=== PATIENT | male | born 2000 | race Caucasian/White ===

== ENCOUNTER 2022-02-09 08:23 | Emergency (ER) | payer SELFPAY ==
[~2022-02-09] VITALS: Ht 167.6 cm; Wt 79.4 kg
[2022-02-09] MEDS ORDERED: IV NS 0.9% 1,000 ML BAG IV ONE (08:30)
[2022-02-09] MEDS ORDERED: FAMOTIDINE/PF INJ 20 MG/2 ML VIAL IV ONE ×2 (08:30→08:32)
[2022-02-09] MEDS ORDERED: diphenhydrAMINE HCL 50 MG/ML VIAL IV ONE (08:30)
[2022-02-09] MEDS ORDERED: methylPREDNISolone SOD SUCC 125 MG/2ML VIAL IV ONE (08:30)
[2022-02-09] MEDS ORDERED: methylPREDNISolone SOD SUCC 125 MG/2ML VIAL ONE (08:31)
--- NOTE | 2022-02-09 08:33 | NUR ---
Serena38 from home, c/o sob and hives started around 5am epi given on scene. On room air, connected to the monitor and pulse ox. Kept comfortable, will continue to monitor accordingly.
[2022-02-09] MEDS ORDERED: Magnesium 1GM/D5W 100ML PREMIX 100 ML IV ONE ×2 (08:43→09:38)
[2022-02-09] MEDS ORDERED: diphenhydrAMINE HCL 50 MG/ML VIAL ONE (08:43)
[2022-02-09] MEDS ORDERED: IPRATROPIUM NEB FS 0.5 MG/2.5 ML AMPUL.NEB ONE (08:45)
[2022-02-09] MEDS ORDERED: ALBUTEROL FS 2.5 MG/3 ML VIAL.NEB ONE (08:45)
[2022-02-09] MEDS ORDERED: IPRATROPIUM NEB FS 0.5 MG/2.5 ML AMPUL.NEB NEB ONE (09:00)
[2022-02-09] MEDS ORDERED: Magnesium 1GM/D5W 100ML PREMIX 200 ML IV ONE (09:00)
[2022-02-09] MEDS ORDERED: ALBUTEROL FS 2.5 MG/3 ML VIAL.NEB NEB ONE (09:00)
[2022-02-09] MEDS ORDERED: PRED50TA PO (12:04)
[2022-02-09] MEDS ORDERED: EPIN0.3P3 IM (12:04)
[2022-02-09 12:14] VITALS: BP 113/67
--- NOTE | 2022-02-09 12:14 | NUR ---
IV removed. Catheter intact and site benign. Pressure and 4x4 applied to site. No bleeding noted.Patient discharged to home in stable condition. Written and verbal after care instructions given. Patient verbalizes understanding of instruction.
== END 2022-02-09 12:15 | disposition home or self-care (01) ==
LOC: ER 08:25
DX: T78.2XXA Anaphylactic shock, unspecified, initial encounter (principal); J45.909 Unspecified asthma, uncomplicated; Z88.6 Allergy status to analgesic agent; Z79.899 Other long term (current) drug therapy
CPT/HCPCS: 99284; 96365; 96375; 94640; J1200; J3490; J2930; J7030; J3475 ×2